=== PATIENT | male | born 1975 | race Caucasian/White ===

== ENCOUNTER 2017-12-04 07:33 | Emergency (ER) | payer BC ==
[2017-12-04 07:46] VITALS: RESP 18; O2SAT 99
--- NOTE | 2017-12-04 08:21 | C.PDOC ---
History Of Present Illness 42 y/o male presents to ED with c/o "pulling" pain on left hip radiating down left leg developed yesterday while getting out of car. Patient states he did not take any medication for pain and denies direct trauma, numbness, tingling, back pain or any other complaints at this time. Time Seen by Provider: 12/04/17 08:05 Chief Complaint (Nursing): Lower Extremity Problem/Injury History Per: Patient History/Exam Limitations: no limitations Onset/Duration Of Symptoms: Days Current Symptoms Are (Timing): Still Present Past Medical History Reviewed: Historical Data, Nursing Documentation, Vital Signs Vital Signs: Last Vital Signs Temp 98.2 F 12/04/17 07:45 Pulse 73 12/04/17 07:45 Resp 18 12/04/17 07:45 BP 144/79 12/04/17 07:45 Pulse Ox 99 12/04/17 09:51 - Medical History PMH: No Chronic Diseases Surgical History: No Surg Hx Family History: States: No Known Family Hx Review Of Systems Gastrointestinal: Negative for: Nausea, Vomiting Musculoskeletal: Positive for: Leg Pain, Other (hip pain). Negative for: Back Pain Skin: Negative for: Rash, Bruising Neurological: Negative for: Weakness, Numbness Physical Exam - Physical Exam Appears: Non-toxic, No Acute Distress Skin: Warm, Dry, No Rash Head: Atraumatic, Normacephalic Eye(s): bilateral: Normal Inspection Oral Mucosa: Moist Neck: Normal ROM, Supple Back: No CVA Tenderness, No Vertebral Tenderness, Other (Point tenderness to left hip radiating down to leg) Extremity: Normal ROM, Capillary Refill (<2 seconds) Neurological/Psych: Oriented x3, Normal Speech, Normal Cognition, Normal Motor, Normal Sensation Gait: Steady ED Course And Treatment O2 Sat by Pulse Oximetry: 99 (RA) Pulse Ox Interpretation: Normal Disposition Counseled Patient/Family Regarding: Need For Followup, Rx Given - Disposition Referrals: Vishnu Mantilla III, MD [Staff Provider] - Disposition: HOME/ ROUTINE Disposition Time: 09:49 Condition: STABLE Prescriptions: Ibuprofen [Motrin] 600 mg PO TID #15 tab Instructions: Hip Pain (DC) Forms: General Discharge Instructions, [facility] (Guatemalan), Work Excuse - POA Present On Arrival: None - Clinical Impression Clinical Impression: Joint pain - Scribe Statement The provider has reviewed the documentation as recorded by the Gurvinderibgarrett Rice All medical record entries made by the Gurvinderibgarrett were at my direction and personally dictated by me. I have reviewed the chart and agree that the record accurately reflects my personal performance of the history, physical exam, medical decision making, and the department course for this patient. I have also personally directed, reviewed, and agree with the discharge instructions and disposition.
[2017-12-04 10:18] VITALS: BP 146/88; PULSE 82; TEMP 98.6
== END 2017-12-04 10:32 | disposition home or self-care (01) ==
LOC: C.ER 07:33
DX: M25.50 Pain in unspecified joint (principal)